=== PATIENT | female | born 1970 | race Caucasian/White ===

== ENCOUNTER 2016-09-12 22:41 | Emergency (ER) | payer OTHER ==
--- NOTE | 2016-09-12 23:45 | ERNOTE ---
Medical Problem HPI - Narrative Date of Service: 09/12/16 - General Chief Complaint: General Assessment Time Seen by Provider: 09/12/16 23:42 Source: patient Exam Limitations: no limitations - Immun/Allergies/Home Medications Immunizations: IMMUNIZATION HX Immunizations Up to Date Yes History of Influenza Vaccine No Hx Pneumococcal Vaccination No Allergies/Adverse Reactions: Allergies ampicillin [Ampicillin] Allergy (Severe, Verified 08/12/15 07:11) anaphylactic Home Medications: HOME MEDICATIONS Aspirin [Aspirin Enteric Coated] 81 mg PO DAILY #1 bottle 05/31/12 [Last Taken Unknown] Nitroglycerin [Nitrostat] 1 tab SL PRN PRN #1 btl 05/31/12 [Last Taken Unknown] Acetaminophen with Codeine [Tylenol with Codeine #3 Tablet] 1 - 2 tab PO Q6H PRN #14 tab 09/13/16 [Last Taken Unknown] Cefuroxime Axetil [Cefuroxime] 500 mg PO BID #20 tablet 09/13/16 [Last Taken Unknown] Dicyclomine HCl [Bentyl] 10 - 20 mg PO TID #180 tab 09/13/16 [Last Taken Unknown ] Dicyclomine HCl [Bentyl] 10 mg PO TID PRN #20 capsule 09/13/16 [Last Taken Unknown] Ondansetron [Zofran Odt] 4 mg PO Q6H PRN #7 tab 09/13/16 [Last Taken Unknown] - History of Present History Narrative: c/o pain around lower ribs with deep breath ever since 1300. No coughing or fever or trauma. . Hurts to touch area , especialy to right lower ribs and to back. Review of Systems - Review of Systems Constitutional: Present: See HPI Cardiology: Present: chest pain - around lower ribs with deep breath. - Patient's Past Medical History Patient History - Medical: Anxiety Patient History - Cardiac/Respiratory: Hypertension, Hyperlipidemia, Myocardial Infarction Patient History - Cancer: No Hx of Cancer Patient History - Surgical Procedures: Other Patient History - Other: None LMP (females 10-50): last week - Family History Father Family History - Cardiac/Respiratory: Coronary Heart Disease Mother\ Family History - Medical: Diabetes Type 2, Renal Failure Family History - Cardiac/Respiratory: Hypertension, Myocardial Infarction - Social History Living Situations: home Psych History: Hx of Anxiety Smoking Status: Current every day smoker Patient requests Smoking Cessation Consult: No Initiate information on Smoking Cessation: No Alcohol Use: occasionally Drug Use: none - Immunizations Immunizations Up to Date: Yes Hx Pneumococcal Vaccination: No History of Influenza Vaccine: No Physical Exam - Physical Exam General Appearance: Present: wd/wn, alert, mild distress Respiratory: Present: no respiratory distress, normal breath sounds, no accessory muscle use, lungs clear, chest tenderness - pt very tender to minimal touch to right lower ribs, no rash. Cardiovascular/Chest: Present: regular rate, rhythm, no murmur, normal peripheral pulses Gastrointestinal/Abdominal: Present: normal bowel sounds, soft, no organomegaly , tenderness - pt with exquisite tenderness to ruq palpation, no masses no rebound. , guarding. Absent: rebound Back Exam: Present: normal inspection, normal range of motion, no CVA tenderness , no vertebral tenderness Extremity Exam: Present: normal inspection ED Progress - Results and Orders Patient's Lab Results:: I have reviewed the patient's lab results. Results and Orders: cbc and cmp = nl with crp = 4 + and bnp =282. THE D DIMER CAME BACK SL. POSITIVE 0.56 - Vital Signs Patient's Vital Signs:: I have reviewed the patient's vital signs. Vital Signs: Vital Signs 09/12/16 22:57 Temperature 37.8 C H Pulse Rate 102 H Respiratory 20 Rate Blood Pressure 174/82 O2 Sat by Pulse 97 Oximetry - X-Ray X-Ray #1 X-Ray: chest Interpretation: Interp. by me - normal - CT/Ultrasound CT/Ultrasound Narrative: PER ARGUS/CTA OF THE CHEST WAS NEGATIVE FOR PE THOUGH THEY DID NOTE A PATCHY INFILTRATE TO MEDIAL ASPECT OF RLL. THE GALLBLADDER US = CHOLELITHISIS AND SUSPICIOUS FOR CHOLECYSTITIS. NO BILARAY DILATATION - Progress/Reassessment Chief Complaint: General Assessment Plan - Plan Plan: D/W DR VALIENTE WHO FELT SHE DID NOT NEED ADMISSION BUT SHOULD FOLLOW UP WITH HIM IN THE OFFICE. Departure - Departure Clinical Impression: RUQ pain Cholelithiasis Qualifiers: Cholelithiasis location: gallbladder Cholecystitis presence: with cholecystitis Cholecystitis acuity: unspecified acuity Biliary obstruction: without biliary obstruction Qualified Code(s): K80.00 - Calculus of gallbladder with acute cholecystitis without obstruction Disposition: Home self-care Condition: Good Instructions: Cholecystitis, [id number], Cholelithiasis, Biliary Colic Additional Instructions: CALL DR VALIENTE OFFICE TOMORROW TO SET UP AN APPOINTMENT OR RETURN TO THE ER IF WORSE. CLEAR LIQUID DIET FOR THE NEXT 24 -48 HOURS. USE THE MEDS DIRECTED FOR ANY VOMITING OR DISCOMFORT. AVOID IRAM FOODS. Referrals: Alex Valiente MD [Associate] - Prescriptions: Acetaminophen with Codeine [Tylenol with Codeine #3 Tablet] 1 - 2 tab PO Q6H PRN #14 tab PRN Reason: Pain Cefuroxime Axetil [Cefuroxime] 500 mg PO BID #20 tablet Dicyclomine HCl [Bentyl] 10 mg PO TID PRN #20 capsule PRN Reason: Pain Dicyclomine HCl [Bentyl] 10 - 20 mg PO TID #180 tab Ondansetron [Zofran Odt] 4 mg PO Q6H PRN #7 tab PRN Reason: Vomiting
[2016-09-13] LABS: Hematocrit 38.6 % (37.0-47.0); Mean Cell Volume 88.7 fl (78-100); Mean Corpuscular Hemoglobin 29.9 pg (27-31); Mean Corpuscular Hgb Conc 33.7 g/dl (32-36); Mean Platelet Volume 10.1 fl (6.0-9.5); Neutrophil # 6.2 K/mm3 (1.3-6.0); Neutrophil % 72.1 % (42-75.0); Platelet Count 207 K/mm3 (150-450); Red Blood Count 4.35 M/mm3 (4.2-5.4); Red Cell Distribution Width 13.2 % (11.5-14.0); White Blood Count 8.5 K/mm3 (4.0-10.5)
--- OUTSIDE RECORDS SUMMARY | 2016-09-13 00:03 | XMS REPORT | Continuity of Care Document ---
:1970 Author Organization [facility] ([facility]) Address [address] [place] [address] Phone [phone] Care Team Providers Name Role Phone Provider, No-Primary Care Primary Care Provider Unavailable Source Comments This disclosure is being made pursuant to the Care Everywhere program, applicable federal and state laws, and may not contain all informaitonavailable regarding this patient.[facility] ([facility]) Active Allergies and Adverse Reactions Not on File Current Medications Not on file Active Problems Not on file Social History Tobacco Use Types Packs/Day Years Used Date Never Assessed Plan of Care Health Maintenance Due Date Last Done Comments Hepatitis B Vaccine (1 of 3 - Primary Series) 1970 Tdap Vaccine 1980 Lipid Disorder Screening 12/09/1987 MMR Vaccine 12/09/1987 Td Vaccine 12/09/1987 Cervical Cancer Screening 12/09/1999 Mammogram 2009 Influenza Vaccine: Seasonal (#1) 11/25/2015 Results from Last 3 Months Not on file
[2016-09-13 00:26] LABS: Albumin * 3.4 gm/dl (3.4-5.0); Anion Gap 10.9 mmol/L (6.8-13.8); BUN/Creatinine Ratio 14.8 (9.0-21.6); Bilirubin Direct 0.1 mg/dL (0.0-0.3); Bilirubin, Total 0.2 mg/dL (0.0-1.1); Bilirubin,Indirect 0.1 mg/dL (0.1-0.7); CRP 4.6 mg/dL (0.0-0.9); Calcium * 8.7 mg/dL (7.9-10.9); Potassium 3.9 mmol/L (3.4-4.6)
[2016-09-13] MEDS ORDERED: KETOROLAC TROMETHAMINE 60 MG/2 ML VIAL IM ONE ×2 (02:02→02:15)
[2016-09-13 02:44] VITALS: BP 152/86
== END 2016-09-13 02:25 | disposition home or self-care (01) ==
LOC: ER 22:41
DX: K80.00 Calculus of gallbladder with acute cholecystitis without obstruction (principal); R10.11 Right upper quadrant pain; F17.200 Nicotine dependence, unspecified, uncomplicated

== ENCOUNTER 2016-09-29 09:50 | Day surgery (SDC) | payer OTHER ==
[~2016-09-29 09:50] MED LIST: RINGERS SOLUTION,LACTATED 1,000 ML IV PRN
--- OUTSIDE RECORDS SUMMARY | 2016-09-29 09:54 | XMS REPORT | Continuity of Care Document ---
:1970 Author Organization [facility] ([facility]) Address [address] [place] [address] Phone [phone] Care Team Providers Name Role Phone Provider, No-Primary Care Primary Care Provider Unavailable Source Comments This disclosure is being made pursuant to the Care Everywhere program, applicable federal and state laws, and may not contain all informaitonavailable regarding this patient.[facility] ([facility]) Active Allergies and Adverse Reactions Not on [...]
[2016-09-29] MEDS ORDERED: BUPIVACAINE HCL/EPINEPHRINE 50 ML VIAL IJ ONE ×2 (11:25)
[2016-09-29] MEDS ORDERED: RINGERS SOLUTION,LACTATED 1,000 ML IV ONE (11:55)
--- NOTE | 2016-09-29 12:12 | OR ---
Operative Report - Dictated Report Narrative: Date: 09/29/2016 Preoperative diagnosis: Chronic cholecystitis, symptomatic cholelithiasis Postoperative diagnosis: Same Procedure: Laparoscopic cholecystectomy Staff surgeon: Alex Valiente MD Anesthesia: Gen. endotracheal EBL: 5 mL Specimen: Gallbladder Drains: None Complications: None apparent Description of procedure: The patient was placed in the supine position and following the smooth induction of general endotracheal anesthesia the abdomen was prepped and draped in a sterile fashion. All port sites were anesthetized with Marcaine prior to incision. A 5 mm infraumbilical incision was carried out and a perforating towel clip was placed through the umbilical raphae for countertraction. The abdomen was entered under direct vision with a 5 mm blunt port with the scope within the lumen of the trocar. The abdomen was then insufflated to a pressure of 15 mmHg with carbon dioxide. Under direct vision a superior midline 12 mm port and 2 right flank 5 mm ports were inserted. The fundus of the gallbladder was grasped and elevated towards the diaphragm. The infundibulum was grasped for countertraction. The cystic duct and cystic artery were isolated with a critical view of safety. These structures were doubly clipped and divided. The gallbladder was removed out of the fossa with a combination of blunt dissection scissor dissection and electrocautery. The gallbladder was then delivered through the superior midline wound completely intact. Inspection was carried out and hemostasis appeared to be adequate there is no evidence of bile leak. The superior midline fascia was approximated with a Jaden-Mahamed device and heavy Vicryl suture. The pneumoperitoneum was evacuated. The incisions were closed with subcuticular stitches of 4-0 Vicryl and then sealed with Dermabond. The patient tolerated the procedure well without any apparent complications and was discharged from the operating room stable condition.
[2016-09-29] MEDS ORDERED: MORPHINE SULFATE 2 MG/ML DISP.SYRIN IV PRN (12:55)
[2016-09-29] MEDS ORDERED: HYDROcodone/ACETAMINOPHEN 1 EACH TABLET PO PRN (12:56)
[2016-09-29] MEDS ORDERED: ONDANSETRON HCL/PF 2 MG/ML VIAL IV PRN (12:56)
[2016-09-29 14:41] VITALS: BP 130/84
== END 2016-09-29 09:51 | disposition home or self-care (01) ==
LOC: AMB 09:50
PROVIDERS: ATTEND Specialist
PROC: 0FT44ZZ Resection of Gallbladder, Percutaneous Endoscopic Approach (ICD-10-PCS; principal; 2016-09-29 11:00)
DX: K80.10 Calculus of gallbladder with chronic cholecystitis without obstruction (principal); I10 Essential (primary) hypertension; E78.5 Hyperlipidemia, unspecified; K21.9 Gastro-esophageal reflux disease without esophagitis; F17.200 Nicotine dependence, unspecified, uncomplicated; Z68.32 Body mass index [BMI] 32.0-32.9, adult